=== PATIENT | male | born 1930 | race Caucasian/White ===

== ENCOUNTER 2016-06-03 09:25 | Inpatient (IN) | payer MEDICARE, BC ==
[2016-06-03] MEDS ORDERED: SODIUM CHLORIDE 0.9% 1,000 ML IV STA (09:33)
--- NOTE | 2016-06-03 09:35 | ED ---
General Adult HPI - General Stated complaint: DIZZINESS Time Seen by Provider: 06/03/16 09:26 Source: patient, RN notes reviewed Mode of arrival: EMS Limitations: no limitations - History of Present Illness Initial comments: Patient is a pleasant 85-year-old male presenting to emergency Department with feeling off balance. Onset was this morning when driving to [employer]. Symptoms continued while at [employer]. Patient feels somewhat better while lying in bed. Patient feels more off balance and leaning towards the side than anything else. Patient denies true sweating 6 sensation. Patient states he may have had some minimal symptoms similar to this in the past. No confusion. No isolated area of weakness. - Related Data Home Medications Medication Instructions Recorded Confirmed Hydrochlorothiazide [Hydrodiuril] 25 mg PO DAILY 01/17/15 02/08/16 Propafenone [Rythmol] 225 mg PO TID 01/17/15 02/08/16 Warfarin [Coumadin] 5 mg PO HS 01/17/15 02/08/16 Lisinopril [Zestril] 10 mg PO DAILY 02/08/16 02/08/16 Metoprolol Succinate (ER) [Toprol 25 mg PO DAILY 02/08/16 02/08/16 Xl] Previous Rx's Medication Instructions Recorded ALPRAZolam [Xanax] 0.25 mg PO TID PRN #15 tab 01/17/15 Allergies Allergy/AdvReac Type Severity Reaction Status Date / Time Sulfa (Sulfonamide Allergy Unknown Verified 02/08/16 19:13 Antibiotics) Review of Systems ROS Statement: Those systems with pertinent positive or pertinent negative responses have been documented in the HPI. ROS Other: All systems not noted in ROS Statement are negative. Constitutional: Denies: fever Eyes: Denies: eye pain ENT: Denies: ear pain Respiratory: Denies: cough Cardiovascular: Denies: chest pain Endocrine: Denies: fatigue Gastrointestinal: Denies: abdominal pain Genitourinary: Denies: dysuria Musculoskeletal: Denies: back pain Skin: Denies: rash Neurological: Denies: weakness Past Medical History Past Medical History: Atrial Fibrillation, Coronary Artery Disease (CAD), Hypertension Additional Past Medical History / Comment(s): AAA, deaf in left ear History of Any Multi-Drug Resistant Organisms: None Reported Past Surgical History: Heart Catheterization With Stent, Hernia Repair, Orthopedic Surgery Past Psychological History: Anxiety Smoking Status: Former smoker Past Alcohol Use History: None Reported Past Drug Use History: None Reported General Exam Limitations: no limitations General appearance: alert, in no apparent distress Head exam: Present: atraumatic Eye exam: Present: normal appearance, PERRL, EOMI. Absent: nystagmus ENT exam: Present: normal oropharynx Neck exam: Present: normal inspection Respiratory exam: Present: normal lung sounds bilaterally Cardiovascular Exam: Present: regular rate, normal rhythm GI/Abdominal exam: Present: soft. Absent: tenderness Extremities exam: Present: normal inspection Neurological exam: Present: alert, oriented X3, CN II-XII intact. Absent: motor sensory deficit Expanded Patient oriented to: Present: person, place, time Speech: Present: fluid speech Cranial nerves: EOM's Intact: Normal Cerebellar function: Finger to Nose: Normal Motor strength exam: RUE: 5, LUE: 5, RLE: 5, LLE: 5 Eye Response: (4) open spontaneously Motor Response: (6) obeys commands Verbal Response: (5) oriented Psychiatric exam: Present: normal affect, normal mood Skin exam: Absent: rash Course Vital Signs 06/03/16 06/03/16 09:26 10:28 Temperature 98.0 F Pulse Rate 77 89 Respiratory 16 18 Rate Blood Pressure 156/77 137/65 O2 Sat by Pulse 97 96 Oximetry EKG Findings - EKG Comments: EKG Findings:: Junctional rhythm at 75. QRS 110. QT 408. QTC 455. Left axis. LVH criteria. No acute ST change. Medical Decision Making - Medical Decision Making Patient reevaluated and still has some similar symptoms. Patient and family updated on results and plan. Case was discussed with Dr. Stinson, who will admit for Dr. Flores. - Lab Data Result diagrams: 06/03/16 09:43 06/03/16 09:43 Lab Results 06/03/16 06/03/16 06/03/16 Range/Units 09:43 09:43 09:43 WBC 5.9 (3.8-10.6) k/uL RBC 4.13 L (4.30-5.90) m/uL Hgb 13.8 (13.0-17.5) gm/dL Hct 41.1 (39.0-53.0) % MCV 99.5 (80.0-100.0) fL MCH 33.5 (25.0-35.0) pg MCHC 33.6 (31.0-37.0) g/dL RDW 13.2 (11.5-15.5) % Plt Count 217 (150-450) k/uL Neutrophils % (Manual) 69.0 % Lymphocytes % (Manual) 16.0 % Monocytes % (Manual) 12.0 % Eosinophils % (Manual) 3.0 % Neutrophils # (Manual) 4.1 (1.3-7.7) k/uL Lymphocytes # (Manual) 0.9 L (1.0-4.8) k/uL Monocytes # (Manual) 0.7 (0-1.0) k/uL Eosinophils # (Manual) 0.2 (0-0.7) k/uL Nucleated RBCs 0 (0-0) /100 WBC Manual Slide Review Performed PT (9.0-12.0) sec INR (<1.1) APTT (22.0-30.0) sec Sodium 142 (137-145) mmol/L Potassium 3.8 (3.5-5.1) mmol/L Chloride 102 (98-107) mmol/L Carbon Dioxide 30 (22-30) mmol/L Anion Gap 10 mmol/L BUN 20 (9-20) mg/dL Creatinine 1.07 (0.66-1.25) mg/dL Est GFR (MDRD) Af Amer >60 (>60 ml/min/1.73 sqM) Est GFR (MDRD) Non-Af >60 (>60 ml/min/1.73 sqM) Glucose 90 (74-99) mg/dL Calcium 9.4 (8.4-10.2) mg/dL Total Bilirubin 0.8 (0.2-1.3) mg/dL AST 20 (17-59) U/L ALT 22 (21-72) U/L Alkaline Phosphatase 82 (38-126) U/L Total Creatine Kinase 60 (55-170) U/L CK-MB (CK-2) 1.1 (0.0-2.4) ng/mL CK-MB (CK-2) Rel Index 1.8 Troponin I <0.012 (0.000-0.034) ng/mL Total Protein 7.0 (6.3-8.2) g/dL Albumin 4.0 (3.5-5.0) g/dL 06/03/16 Range/Units 09:43 WBC (3.8-10.6) k/uL RBC (4.30-5.90) m/uL Hgb (13.0-17.5) gm/dL Hct (39.0-53.0) % MCV (80.0-100.0) fL MCH (25.0-35.0) pg MCHC (31.0-37.0) g/dL RDW (11.5-15.5) % Plt Count (150-450) k/uL Neutrophils % (Manual) % Lymphocytes % (Manual) % Monocytes % (Manual) % Eosinophils % (Manual) % Neutrophils # (Manual) (1.3-7.7) k/uL Lymphocytes # (Manual) (1.0-4.8) k/uL Monocytes # (Manual) (0-1.0) k/uL Eosinophils # (Manual) (0-0.7) k/uL Nucleated RBCs (0-0) /100 WBC Manual Slide Review PT 21.3 H (9.0-12.0) sec INR 2.2 (<1.1) APTT 28.8 (22.0-30.0) sec Sodium (137-145) mmol/L Potassium (3.5-5.1) mmol/L Chloride (98-107) mmol/L Carbon Dioxide (22-30) mmol/L Anion Gap mmol/L BUN (9-20) mg/dL Creatinine (0.66-1.25) mg/dL Est GFR (MDRD) Af Amer (>60 ml/min/1.73 sqM) Est GFR (MDRD) Non-Af (>60 ml/min/1.73 sqM) Glucose (74-99) mg/dL Calcium (8.4-10.2) mg/dL Total Bilirubin (0.2-1.3) mg/dL AST (17-59) U/L ALT (21-72) U/L Alkaline Phosphatase (38-126) U/L Total Creatine Kinase (55-170) U/L CK-MB (CK-2) (0.0-2.4) ng/mL CK-MB (CK-2) Rel Index Troponin I (0.000-0.034) ng/mL Total Protein (6.3-8.2) g/dL Albumin (3.5-5.0) g/dL - Radiology Data Radiology results: report reviewed (Computed tomography scan the brain shows no acute abnormality. 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 Age-related atrophy.), image reviewed (Two-view chest x-ray shows cardiomegaly. No acute process.) Disposition Clinical Impression: Balance problem Disposition: ADMITTED IP TO THIS HOSP
[2016-06-03 10:14] LABS: INR 2.2 (<1.1); Partial Thromboplastin Time 28.8 sec (22.0-30.0); Prothrombin Time 21.3 sec (9.0-12.0)
[2016-06-03 10:16] LABS: ALT 22 U/L (21-72); AST 20 U/L (17-59); Alkaline Phosphatase 82 U/L (38-126); Anion Gap 10 mmol/L; Blood Urea Nitrogen 20 mg/dL (9-20); Calcium 9.4 mg/dL (8.4-10.2); Carbon Dioxide 30 mmol/L (22-30); Chloride 102 mmol/L (98-107); Glucose 90 mg/dL (74-99); Non-African American GFR(MDRD) >60 (>60 ml/min/1.73 sqM); Potassium 3.8 mmol/L (3.5-5.1); Sodium 142 mmol/L (137-145); Total Bilirubin 0.8 mg/dL (0.2-1.3)
[2016-06-03 10:25] LABS: Creatine Kinase 60 U/L (55-170)
[2016-06-03 10:30] LABS: Aty Lym Flag Marked; CH 33.4; CHCM 33.7; HCT 41.1 % (39.0-53.0); HDW 2.26; HGB 13.8 gm/dL (13.0-17.5); MCH 33.5 pg (25.0-35.0); MCHC 33.6 g/dL (31.0-37.0); MCV 99.5 fL (80.0-100.0); MPO Flag Slight; Mean Platelet Volume 7.3; RBC 4.13 m/uL (4.30-5.90); RDW 13.2 % (11.5-15.5); WBC 5.9 k/uL (3.8-10.6); WBC (Perox) 5.98
--- NOTE | 2016-06-03 10:35 | CT ---
EXAMINATION TYPE: CT brain wo con DATE OF EXAM: 06/03/2016 10:15 AM COMPARISON: NONE HISTORY: Neuro deficits. Dizziness. CT DLP: 1029.90 mGycm Automated exposure control for dose reduction was used. FINDINGS: There is no acute intracranial hemorrhage, mass effect, or midline shift identified. The ventricles and sulci are within normal limits in size. Cerebral vascular calcifications are present. Periventric ular white matter low-attenuation is present, there is cortical atrophy. Low-attenuation in the poste rior parietal lobe on the right likely due to old infarction. The globes are intact and the visualize d sinuses are remarkable for inflammatory change in the ethmoid air cells, sphenoid sinus. IMPRESSION: No acute abnormalities suspected. 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 Age -related atrophy. MRI may be of benefit as indicated
[2016-06-03 10:38] LABS: Creatine Kinase MB 1.1 ng/mL (0.0-2.4); Troponin I <0.012 ng/mL (0.000-0.034)
--- NOTE | 2016-06-03 10:45 | XR ---
EXAMINATION TYPE: XR chest 2V DATE OF EXAM: 06/03/2016 10:28 AM COMPARISON: Prior chest x-ray October HISTORY: Altered mental status, abnormal chest x-ray TECHNIQUE: Frontal and lateral views of the chest are obtained. FINDINGS: There is no focal air space opacity, pleural effusion, or pneumothorax seen. The cardiac silhouette size is stable and enlarged. Overlying cardiac leads are present, there may be scoliosis. Postop changes are noted within the abdomen status post aortic stent graft. Prominent lung volume ma y be indicative of COPD. The osseous structures are intact. IMPRESSION: No acute cardiopulmonary process. Cardiomegaly is stable.
[2016-06-03 10:46] LABS: Add Differential Manual Differential
[2016-06-03 10:47] LABS: Nucleated Red Blood Cells 0 /100 WBC (0-0); Total Cells Counted 100
[2016-06-03 10:48] LABS: Manual Review Performed
[2016-06-03] MEDS ORDERED: ASPIRIN 325 MG TAB PO STA (11:18)
[2016-06-03] MEDS ORDERED: MECLIZINE 25 MG TAB PO PRN (11:19)
[2016-06-03] MEDS ORDERED: LISINOPRIL 20 MG TAB PO SCH (12:15)
[2016-06-03] MEDS ORDERED: METOPROLOL SUCCINATE (ER) 25 MG TAB.ER.24H PO SCH (12:15)
--- NOTE | 2016-06-03 13:11 | US ---
EXAMINATION TYPE: US carotid duplex BILAT DATE OF EXAM: 06/03/2016 11:49 AM COMPARISON: 10/18/2015 CLINICAL HISTORY: Stenosis. dizziness EXAM MEASUREMENTS: RIGHT: Peak Systolic Velocity (PSV) cm/sec ----- Right CCA: 73.5 ----- Right ICA: 90.0 ----- Right ECA: 73.5 ICA/CCA ratio: 1.2 RIGHT: End Diastole cm/sec ----- Right CCA: 19.7 ----- Right ICA: 19.7 ----- Right ECA: 15.3 LEFT: Peak Systolic Velocity (PSV) cm/sec ----- Left CCA: 87.8 ----- Left ICA: 68.8 ----- Left ECA: 133.9 ICA/CCA ratio: 0.8 LEFT: End Diastole cm/sec ----- Left CCA: 16.4 ----- Left ICA: 8.6 ----- Left ECA: 17.6 VERTEBRALS (direction of flow): Right Vertebral: Antegrade Left Vertebral: Antegrade TECHNOLOGIST IMPRESSION: No significant stenosis seen, bilateral plaque at bulb Grayscale, color Doppler, spectral Doppler imaging performed of the carotid arteries. IMPRESSION: No hemodynamic significant stenosis of the proximal internal carotid arteries bilaterall y by Doppler criteria, and indirect measurement of carotid stenosis.
[2016-06-03 14:30] VITALS: BMI 32.8
[2016-06-03] MEDS: SODIUM CHLORIDE 0.9% 1,000 ML IV SCH ×2 (15:15→21:01)
[2016-06-03] MEDS ORDERED: PROPAFENONE 225 MG TAB PO SCH (16:00)
[2016-06-03 20:06] LABS: Magnesium 1.9 mg/dL (1.6-2.3); Potassium 3.9 mmol/L (3.5-5.1)
[2016-06-03] MEDS: ATORVASTATIN 20 MG TAB PO SCH (21:01)
[2016-06-03] MEDS: WARFARIN 5 MG TAB PO SCH (21:01)
[2016-06-04] MEDS: SODIUM CHLORIDE 0.9% 1,000 ML IV SCH ×2 (06:56→16:53)
--- NOTE | 2016-06-04 06:59 | HP ---
DATE OF SERVICE: 06/03/2016 CHIEF COMPLAINT: Dizziness and balance issues. HISTORY OF PRESENT ILLNESS: Mr. Chan is an 85-year-old male with the past medical history of atrial fibrillation, coronary artery disease, hypertension and dementia. Brought in by his family members with dizziness and also was having a problem with his balance since this morning. Patient was driving to [employer] this morning when he felt dizzy and then he reached the [employer] and while he was in the [employer] the patient felt that his balance was off and was leaning to his left side. His family also noticed that the patient was having twitching on the right side of his face. There was no loss of consciousness or no seizure-like activity. Patient denies having weakness. He denies having any headaches, blurring of vision or problems with hearing. Patient is hard of hearing but no new symptoms. Patient denies feeling sick. Denies having any fever, neck pain or headaches. REVIEW OF SYSTEMS: CONSTITUTIONAL: Denies fever, chills or rigors. CHEST: No cough. No difficulty in breathing. CARDIAC: No chest pain, no palpitations. GI: No abdominal pain, nausea, vomiting, or diarrhea. : No dysuria or hematuria. HEMATOLOGIC: No history for recurrent infections or easy bruising. DERMATOLOGICAL: None. All 13 review of systems are done and normal except for ones mentioned in the HPI. PAST MEDICAL HISTORY: Significant for atrial fibrillation, coronary artery disease, hypertension, dementia and deafness in the left. PAST SURGICAL HISTORY: Hernia repair, orthopedic surgery, bilateral knee replacements. ALLERGIES: Sulfa drugs. SOCIAL HISTORY: Former smoker and quit smoking 40 to 50 years back. Occasional alcohol use. No history of intravenous drug abuse. Patient's home medications: Coumadin 5 mg p.o. q.h.s. propafenone 225 mg p.o. 3 times a day. Hydrochlorothiazide 25 mg p.o. daily, metoprolol XL 25 mg p.o. daily, omeprazole 20 mg p.o. daily, atorvastatin 20 mg p.o. q.h.s. aspirin 81 mg p.o. q.h.s. FAMILY HISTORY: Positive coronary artery disease. On examination, patient's vital signs, temperature 97.1, heart rate 65, respiratory rate 16, blood pressure 176/97, saturating at 94% on room air. GENERAL EXAMINATION: Patient is an elderly male, lying in bed, appears to be in no acute distress. HEAD: Atraumatic, normocephalic. EYES: Pupils, round, and reactive to light. NECK: No JVD. No thyromegaly. CARDIOVASCULAR: S1, S2 heard, bradycardic. LUNGS: Bilateral breath sounds are positive. No wheezes or crackles. ABDOMEN: Soft, nontender, nondistended. Organomegaly difficult to appreciate due to huge body habitus. EXTREMITIES: No edema, o cyanosis, no clubbing. SOCIAL WORKER SCHOOL: Alert, awake, oriented x3. No focal neurological deficits, no facial weakness. Strength is 4 out of 5 in all 4 extremities. Gait is normal. PSYCHOLOGICAL: Appropriate mood and affect. SKIN: No rashes. Patient's labs: White count of 5.9, hemoglobin is 13.8, platelets of 217. Sodium 142, potassium 3.8, chloride 102, bicarb 30, BUN 20, creatinine 1.7. PT of 21.3, INR of 2.2. Albumin is 4, total protein is 7, troponin less than 0.012. ASSESSMENT AND PLAN: 1. Dizziness with balance issues. The patient has been admitted to be evaluated for transient ischemic attack/stroke. Currently, the patient does not have any neurological deficits. Neurology has been consulted. Patient also had a CAT scan of his brain that is within normal limits for his age. Patient has been put on tele monitoring and the patient is having 3 to 4 second sinus pauses with first degree heart block. His anti-arrthmics and B blockers have been on hold currently. 2. History of atrial fibrillation. He is on Coumadin. 3. History of coronary artery disease. 4. Hearing loss in left ear. 5. Dementia. 6. History of bilateral knee replacements done in the past. 7. History of anxiety. PLAN: The plan is to continue the patient on the current medication regimen. Neurology has been consulted. Further recommendations to follow depending on the progress of the patient. JAMID
[2016-06-04 08:01] VITALS: RESP 18
--- NOTE | 2016-06-04 08:55 | CONS ---
DATE OF CONSULTATION: CHIEF COMPLAINT: Near syncope. This is an 85-year-old gentleman with history of severe dementia, paroxysmal atrial fibrillation, hypertension, and dyslipidemia who presented to the hospital having had an episode of profound dizziness and near syncope while he was at [employer]. He felt dizzy. Got up. Held onto something but did not lose consciousness, did not pass out and did not fall. Came to hospital and since being admitted he was initially in sinus rhythm. Subsequently, he was in junctional rhythm. There were episodes of atrial fibrillation. He has had pauses, the longest of which was about 4.3 seconds. Interestingly the patient did not have any symptoms during the pauses and it is unclear as to what exactly caused a near syncopal event. At the time of my evaluation, he is free of symptoms. Denies chest pain, difficulty in breathing, palpitations or focal neurological deficits. Patient complains of having some visual disturbances on the right side and is currently being worked up for possible cerebrovascular accident. The patient is on multiple medications that could be causing the pauses including the Toprol-XL, which is currently on hold and Rythmol, which is currently held. The patient is adequately anticoagulated with an INR of 2.2. Patient has significant dementia. Family does not want to have any invasive procedures unless it is absolutely necessary. I believe the pauses are related to his underlying atrial fibrillation and if he develops pauses more than five seconds, behaves like tachybrady syndrome off the beta blockers, then we will consider pacemaker on him. At this time, I am going to treat him with his medications, optimal control of blood pressure, continued anticoagulation and check an echocardiogram. I will review his outpatient records and I am going to talk to Dr. Laney Rowe his primary garbage man. Past medical history is significant for paroxysmal atrial fibrillation, hypertension, dyslipidemia. Medications at home include: 1. Coumadin 5 daily. 2. Rythmol 225 t.i.d. 3. Toprol-XL 25 daily. 4. Zestril 20 daily. 5. HydroDIURIL. 6. Atorvastatin. 7. Aspirin. ALLERGIC TO SULFA. Family history is negative for premature coronary artery disease. SOCIAL HISTORY: Negative for smoking, ETOH abuse, or drug abuse. The patient has dementia, is a caregiver. REVIEW OF SYSTEMS: HEENT: Unremarkable. CARDIAC: As described above. RESPIRATORY: As described above. GI: Negative. GENITOURINARY: Negative. Allergy/immunology: Negative. SKIN: Negative. MUSCULOSKELETAL: Significant for arthritis. PSYCHOSOCIAL: Negative. Dermatology: Negative. CONSTITUTIONAL: Negative. Oncological: Negative. HEMATOLOGICAL: Negative. The rest of the system review is not relevant. On exam, comfortable at rest, afebrile. Heart rate is 55 beats per minute, blood pressure is 101/55, respirations 18, O2 sat is 96% on room air. There is no jugular venous distention. Carotid upstroke is normal. There is no bruit. Chest exam reveals good air entry bilaterally. Heart exam reveals first and second heart sounds. No gallop. No murmur, no rub. ABDOMEN: Soft, nontender. Exam of the extremities did not reveal any edema. Peripheral pulses are felt. LAUNDRY EQUIPMENT OPERATOR exam did not reveal focal neurological deficits. Labs show a hemoglobin of 13.8, platelet count is 217. INR is 2.2. The potassium is 3.9. Creatinine is 1. One set of troponin is negative TSH is normal at 2.6. ASSESSMENT: 1. Near syncope. 2. Paroxysmal atrial fibrillation. 3. Sinus pauses. 4. Dyslipidemia. PLAN: I am going to hold the beta blockers at this stage. Continue anticoagulation. Hold Rythmol. See how he does. I will review her outpatient records.
[2016-06-04] MEDS ORDERED: ASPIRIN 325 MG TAB PO SCH (09:00)
--- NOTE | 2016-06-04 10:20 | ECHOF ---
Referral Reason: MEASUREMENTS -------- HEIGHT: 175.3 cm WEIGHT: 100.2 kg BP: IVSd: 1.3 cm (0.6 - 1.1) LVIDd: 4.6 cm (3.9 - 5.3) LVPWd: 1.3 cm (0.6 - 1.1) IVSs: 2.3 cm LVIDs: 2.4 cm LVPWs: 2.0 cm Ao Diam: 4.0 cm (2.0 - 3.7) AV Cusp: 1.4 cm (1.5 - 2.6) LA Diam: 3.8 cm (2.7 - 3.8) MV EXCURSION: 12.495 mm (> 18.000) MV EF SLOPE: 133 mm/s (70 - 150) EPSS: 1.0 cm MV E Leonel: 0.76 m/s MV DecT: 290 ms MV A Leonel: 0.66 m/s MV E/A Ratio: 1.14 AV maxP.98 mmHg AV meanP.12 mmHg AR PHT: 419 ms RAP: 5.00 mmHg RVSP: 10.82 mmHg FINDINGS -------- Sinus rhythm. This was a technically adequate study. There is mild concentric left ventricular hypertrophy. Overall left ventricular systolic function is normal with, an EF between 55 - 60 %. The right ventricle is normal in size and function. The left atrium is normal in size. The right atrium is normal in size. Aortic valve is trileaflet and is moderately thickened. There is mild aortic regurgitation. There is mild aortic stenosis present. Peak/mean gradient across the Aortic Valve is 16.98mmHg / 9.12mmHg. The mitral valve leaflets are mildly thickened. There is trace mitral regurgitation. Trace tricuspid regurgitation present. The right ventricular systolic pressure, as measured by Doppler, is 10.82mmHg. Pulmonic valve appears structurally normal. The aortic root is mildy dilated. The pericardium is normal. CONCLUSIONS -------- 1. Sinus rhythm. 2. There is mild aortic stenosis present. 3. Peak/mean gradient across the Aortic Valve is 16.98mmHg / 9.12mmHg. 4. The mitral valve leaflets are mildly thickened. 5. There is trace mitral regurgitation. 6. Trace tricuspid regurgitation present. 7. The right ventricular systolic pressure, as measured by Doppler, is 10.82mmHg. 8. Pulmonic valve appears structurally normal. 9. The aortic root is mildy dilated. 10. The pericardium is normal. 11. This was a technically adequate study. 12. There is mild concentric left ventricular hypertrophy. 13. Overall left ventricular systolic function is normal with, an EF between 55 - 60 %. 14. The right ventricle is normal in size and function. 15. The left atrium is normal in size. 16. The right atrium is normal in size. 17. Aortic valve is trileaflet and is moderately thickened. 18. There is mild aortic regurgitation. PRECAST MOLDER: Sara Maravilla RDCS
[2016-06-04] MEDS: LISINOPRIL 10 MG TAB PO SCH (10:32)
[2016-06-04] MEDS ORDERED: ACETAMINOPHEN TAB 325 MG TAB PO PRN (14:26)
[2016-06-04] MEDS: WARFARIN 5 MG TAB PO SCH (20:25)
[2016-06-04] MEDS: ATORVASTATIN 20 MG TAB PO SCH (20:25)
[2016-06-04] MEDS ORDERED: MELATONIN 5 MG TABLET PO SCH (21:00)
[2016-06-04] MEDS ORDERED: ASPIRIN 81 MG CHEW PO SCH (21:00)
[2016-06-05] MEDS: SODIUM CHLORIDE 0.9% 1,000 ML IV SCH ×2 (04:17→13:36)
--- NOTE | 2016-06-05 05:23 | PN ---
DATE OF SERVICE: 06/04/2016 CHIEF COMPLAINT: Dizziness and balance issues. INTERVAL HISTORY: Mr. Chan is an 85-year-old male with a past medical history of atrial fibrillation, coronary artery disease, hypertension, dementia who is brought in by his family members with a chief complaint of dizziness and was also having bowel problems with his balance. Currently, the patient does not have any active symptoms with which he presented. Patient was also having longer 4 to 5 second pauses and so his beta blockers and Rythmol have been discontinued yesterday. He is currently being worked up for TIA/stroke. ( ) The patient has no active complaints. He is sitting in his bed, appears to be no acute distress. REVIEW OF SYSTEMS: CONSTITUTIONAL: Denies having any fever, chills or rigors. RESPIRATORY: No cough. No difficulty in breathing. GI: No abdominal pain, nausea, vomiting, or diarrhea. : No dysuria or hematuria. Patient has dementia at baseline. Patient's medications have been reviewed. On examination, patient's vital signs: Temperature 98.2, heart rate 73, respiratory rate 18, blood pressure 168/96, saturating at 98% on room air. GENERAL EXAMINATION: Patient appears to be in no acute distress, sitting comfortably in the ( ) having conversation with his family members. HEAD: Atraumatic, normocephalic. EYES: Pupils round and reactive to light. No facial droop noticed. NECK: No JVD. No thyromegaly. CARDIOVASCULAR: S1, S2 heard. Bradycardiac. LUNGS: Bilateral breath sounds are positive. No wheeze or crackles. ABDOMEN: Soft, nontender, nondistended. Organomegaly difficult to appreciate due to huge body habitus. EXTREMITIES: No edema, no cyanosis, no clubbing. SPIRITUAL CARE COORDINATOR: Alert, awake, oriented x3. No focal neurological deficits. Strength is 4 out of 5 in all 4 extremities. Gait is normal. PSYCHOLOGICAL: Appropriate mood and affect. SKIN: No rashes. THE PATIENT'S LABS: No new labs from this morning. Labs from yesterday within normal limits. ASSESSMENT AND PLAN: 1. Dizziness with balance issues. The patient has been admitted for transient ischemic attack evaluation. Currently, he does not have any neurological deficits. The patient had a CAT scan of his brain and also carotid artery Doppler and an echocardiogram done, which are within normal limits. As the patient had sinus pauses, his beta blockers and antiarrhythmics have been on hold currently. 2. History of atrial fibrillation, on anticoagulation with Coumadin. 3. History of coronary artery disease. 4. Hearing loss, left ear. 5. Dementia. 6. History of bilateral knee replacement done in the past. 7. History of anxiety. PLAN: The plan is to continue the patient on current medication regimen. Neurology has been consulted and are pending their evaluation. Further recommendations to follow depending on the progress of the patient.
[2016-06-05 06:35] LABS: Cholesterol 77 mg/dL (<200); HDL Cholesterol 50 mg/dL (40-60); Triglycerides 64 mg/dL (<150)
[2016-06-05] MEDS: LISINOPRIL 10 MG TAB PO SCH (08:35)
--- NOTE | 2016-06-05 10:27 | P.PN ---
Subjective Principal diagnosis: Near Syncope This is a pleasant 85-year-old gentleman with a history of severe dementia who follows regularly in the office with Dr. KWASI Rowe. He has a known history of paroxysmal atrial fib, hypertension and dyslipidemia. Presented to the hospital via EMS after having episodes of profound dizziness and near syncope while at [facility]. Upon presentation patient was in a sinus rhythm. Subsequently he was found to be in a junctional rhythm with episodes of atrial fibrillation. He was noted to have positive with the longest of about 4.3 seconds. The patient's Toprol-XL and Rythmol are currently on hold. on examination this morning, patient verbalizes feeling quite a bit better. He does complain of feeling tired and attributes this to not sleeping well initially while here. Said he did sleep quite a bit better last night. His is at his bedside. He denies any complaints of dizziness or lightheadedness and his confirms this. Objective - Vital Signs Vital signs: Vital Signs Temp 98.2 F 06/05/16 08:38 Pulse 72 06/05/16 08:38 Resp 18 06/05/16 08:38 BP 153/71 06/05/16 08:38 Pulse Ox 97 06/05/16 08:38 Intake & Output 06/04/16 06/05/16 06/05/16 18:59 06:59 18:59 Intake Total 160 240 Output Total 200 Balance -40 240 Weight 101.1 kg Intake: Intake, IV Titration 160 Amount Sodium Chloride 0.9% 1, 160 000 ml @ 100 mls/hr IV . Q10H [facility] Rx#:[id number] Oral 240 Output: Urine 200 Other: Voiding Method Toilet Toilet Toilet # Voids 1 - Exam PHYSICAL EXAMINATION: HEENT: Head is atraumatic, normocephalic. Pupils equal, round. Neck is supple. There is no elevated jugular venous pressure. HEART EXAMINATION: Heart sounds regular, S1 and S2 with a systolic murmur. CHEST EXAMINATION: Lungs are clear to auscultation and precussion. No chest wall tenderness is noted on palpation or with deep breathing. ABDOMEN: Soft, nontender. Bowel sounds are heard. No organomegaly noted. EXTREMITIES: Diminished peripheral pulses with no evidence of peripheral edema and no calf tenderness noted. NEUROLOGIC patient is awake, alert and oriented to person and place, frequent confusion and short-term memory loss noted. . - Labs CBC & Chem 7: 06/03/16 09:43 06/03/16 19:19 Assessment and Plan Plan: Assessment and plan #1 near syncope #2 paroxysmal atrial fibrillation, anticoagulated on Coumadin #3 sinus pauses #4 dyslipidemia #5 dementia [employer] perspective, we will continue to hold beta blockers and Rythmol. Continue anticoagulation. Further recommendations to follow. The above dictated assessment and findings were discussed with signing physician. The impression and plan of care have been directed as dictated. Catherine Rubio, Nurse Practitioner, acting as scribe for signing physician.
--- NOTE | 2016-06-05 12:23 | CONS ---
DATE OF CONSULTATION: 06/04/2016 CHIEF COMPLAINT: Dizziness and gait instability. HISTORY OF PRESENT ILLNESS: The patient is a pleasant, 85-year-old male who is being evaluated by the neurology service per the request of Dr. Oakes for the above-mentioned complaints. The patient was brought into [facility] emergency room yesterday after he had some dizziness and gait instability. 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 He did make it to the [employer] but he was noticed to be having gait instability with difficulty balancing. There was also mention of some left facial twitching on the right side. In the emergency room, a CT scan of the brain was done, which showed no acute intracranial abnormalities. There was evidence of an old ischemic infarct involving the right parietal lobe along with some generalized atrophy and small vessel ischemic changes. The patient does have history of atrial fibrillation and is on Coumadin and aspirin 81 mg daily at home. His INR was therapeutic at 2.2 on arrival. A carotid Doppler was done, which showed no hemodynamically significant stenosis. His CBC, comprehensive metabolic profile, and cardiac enzymes were reviewed and were within normal limits. At the time of my evaluation, the patient is lying in his bed and appears to be in no acute distress. He reports resolution of his symptoms. His family reports that they have been ambulating him up and down the hallway and he is back to his baseline. PAST MEDICAL HISTORY: Atrial fibrillation, coronary artery disease, hypertension, dementia. PAST SURGICAL HISTORY: Hernia repair, bilateral knee replacement surgeries. SOCIAL HISTORY: The patient is a former smoker. He occasionally drinks alcohol. He denies any drug use. FAMILY HISTORY: Positive for heart disease. HOME MEDICATIONS: Reviewed in the chart. ALLERGIES: SULFA DRUGS. REVIEW OF SYSTEMS: CONSTITUTIONAL: Negative. EYES: Positive for chronic diminished vision. ENT: Positive for chronic diminished hearing, left more than right. CARDIOVASCULAR: Positive for coronary artery disease and atrial fibrillation. RESPIRATORY: Negative. NEUROLOGICAL: As mentioned above. He denies any lateralizing numbness or weakness. The patient also has progressive memory loss. GASTROINTESTINAL: Negative. GENITOURINARY: Negative. PSYCHIATRIC: Negative. MUSCULOSKELETAL: Positive for occasional joint pain. ENDOCRINE: Negative. Dermatological: Negative. PHYSICAL EXAM: Vital signs show a temperature of 98.4, pulse 64, respirations 18, blood pressure 154/94. GENERAL APPEARANCE: The patient is a mildly obese, elderly male who appears to be in no acute distress. HEENT: Normocephalic, atraumatic, no facial asymmetry is seen. Neck is supple with no masses felt. CARDIOVASCULAR: Regular rate and rhythm. ABDOMEN: Nontender, nondistended. Extremities showed trace edema with no clubbing seen. NEUROLOGICAL EXAM: The patient is awake and oriented to person and place. He could not recall the year. No lateralizing weakness is seen but the patient does have mild generalized weakness at 5-/5 rating. Sensory exam showed normal light-touch sensation in all 4 extremities. No facial asymmetry is seen on cranial nerve testing. Mild postural tremors are seen. No seizure-like activity is noticed. IMPRESSION: 1. Transient ischemic attack. 2. Transient episode of dizziness and gait instability, resolved. 3. History of previous ischemic stroke. 4. Atrial fibrillation. 5. Progressive memory loss. RECOMMENDATIONS: The patient does appear to have suffered a transient ischemic attack with a transient episode of gait instability and dizziness. He does have a history of atrial fibrillation and is on Coumadin and aspirin. His INR is therapeutic and I do recommend continuing anticoagulation at the current dose. His carotid Doppler showed no hemodynamically significant stenosis. His CT scan of the brain did show an old ischemic stroke involving the right parietal lobe. The patient and the family were unaware of this. His risk factors for strokes were discussed with the patient and his family. I will order a fasting lipid panel, EEG and serum homocysteine level. As for his progressive memory loss, loss further outpatient neurological work-up will be needed. He will follow up in the clinic after his discharge. Continue the rest of your current work-up and management. I will continue to follow with you. Further recommendations to follow. Thank you for allowing me to participate in the care of your patient. If you have any questions, please feel free to contact me.
[2016-06-05 15:52] VITALS: BP 134/63; PULSE 63; TEMP 98.1
--- NOTE | 2016-06-05 17:08 | P.PN ---
Subjective Principal diagnosis: TIA Is a pleasant 85-year-old male continuing to be evaluated by the neurology service. He had been experiencing some dizziness and gait instability. There was also a mention of some right facial twitching. Initial CT of the brain showed no acute intracranial abnormalities. There was some old ischemic change noted in the right parietal lobe. There was also generalized atrophy and small vessel ischemic changes. He has a known history of atrial fibrillation and is on Coumadin and aspirin. Carotid Doppler showed no hemodynamically snug against stenosis. At this time my evaluation he is walking unaided in the hallway. Note he does have a diagnosis of likely dementia but is on no medication for this. His does report that he has trouble sleeping she is not at his home so they're asking if he could possibly go home today. Objective - Vital Signs Vital signs: Vital Signs Temp 98.1 F 06/05/16 15:51 Pulse 63 06/05/16 15:51 Resp 18 06/05/16 15:51 BP 134/63 06/05/16 15:51 Pulse Ox 96 06/05/16 15:51 Intake & Output 06/04/16 06/05/16 06/05/16 18:59 06:59 18:59 Intake Total 160 702 Output Total 200 Balance -40 702 Weight 101.1 kg Intake: Intake, IV Titration 160 Amount Sodium Chloride 0.9% 1, 160 000 ml @ 100 mls/hr IV . Q10H [facility] Rx#:[id number] Oral 702 Output: Urine 200 Other: Voiding Method Toilet Toilet Toilet # Voids 1 - Constitutional General appearance: Present: average body habitus, cooperative, no acute distress - EENT Eyes: Present: PERRLA. Absent: abnormal pupil, ptosis ENT: Present: hard of hearing - Neck Neck: Present: normal ROM - Respiratory Respiratory: negative: prolonged expiration, prolonged inspiration - Cardiovascular Rhythm: irregularly irregular - Gastrointestinal General gastrointestinal: Absent: distended, tenderness - Neurologic Neurologic Comment(s): Patient is alert awake and oriented to person and place. There is no lateralizing weakness seen . There is no facial asymmetry. No sensory deficit in any extremity. No tremors or seizure-like activities are seen except for some mild postural tremors in the hands. - Labs CBC & Chem 7: 06/03/16 09:43 06/03/16 19:19 Assessment and Plan (1) TIA (transient ischemic attack) Status: Acute (2) Atrial fibrillation Status: Chronic (3) Memory loss Status: Chronic (4) History of stroke Status: Chronic (5) Balance problem Status: Resolved Plan: He likely has suffered a transient ischemic attack. He will continue Coumadin and aspirin. His carotid Doppler showed no hemodynamically significant stenosis and his CT of the brain did confirm an old stroke of the right parietal lobe. An EEG has not been performed yet and they're asking if they can get this done in outpatient setting. I will talk to nursing staff aphasic cannot be done tonight we will do this in an outpatient setting. We will also follow him if they wish to workup his likely diagnosis of dementia. He is otherwise cleared from a neurological standpoint. Continue evaluation and treatment by cardiology. I have performed a history and physical on the above patient. I have reviewed the above note, and agree.
--- NOTE | 2016-06-07 05:47 | DS ---
DATE OF ADMISSION: 06/04/2016 DATE OF DISCHARGE: 06/05/2016 DISCHARGE DIAGNOSES: 1. Dizziness and near syncope, discontinued metoprolol and propafenone/Rythmol. 2. Possible transient ischemic attack. Neurologic workup included carotid duplex, CT head and 2-D echo have been negative. 3. History of paroxysmal atrial fibrillation, on anticoagulation with Coumadin. 4. History of coronary artery disease. 5. Hearing loss left ear. 6. Dementia and memory impairment. 7. Osteoarthritis with bilateral knee replacement in the past. 8. Anxiety. 9. Hyperlipidemia. HOSPITAL COURSE: Mr. Chan is an 85-year-old male with known history of underlying dementia and memory ( ) admitted to the hospital with a near syncopal episode. The patient had workup done for possible TIA including CT head, carotid duplex and 2-D echo has been negative. Patient was seen by Cardiology and Neurology. Patient has been taking beta blockers and Rythmol for paroxysmal atrial fibrillation, which has been discontinued. Otherwise, patient symptomatically much improved now. Neurology recommended outpatient EEG. Workup for seizures. Otherwise, the patient is clinically stable and will be discharged home with the family in stable condition. DISCHARGE PHYSICAL EXAMINATION: An 85-year-old male sitting on the chair comfortably, awake, alert, oriented x2 to 3, appears to be in no apparent distress. VITALS: Blood pressure 134/63, pulse is 63, respiratory rate is 18, temperature afebrile. Pulse ox 96% on room air. Laboratory data reviewed. Discharge physical examination done. Discharge medications include: 1. Hydrochlorothiazide 25 mg p.o. daily. 2. Warfarin 5 mg p.o. at bedtime. 3. Aspirin 81 mg p.o. at bedtime. 4. Atorvastatin 20 mg p.o. at bedtime. 5. Zestril 20 mg p.o. daily. Patient will be discharged home and home with self care and by the family members. Activity as tolerated. Heart healthy diet. Follow with Dr. Magno Flores in 1 to [address] Marge Romero in 10 days.
== END 2016-06-05 18:07 | disposition home or self-care (01) | DRG 69 ==
LOC: EC 09:25 → 3OBS 11:18 → 6SEL 13:30 → OBSVTOIN 06-04 14:28
PROVIDERS: ADMIT Internal Medicine; ATTEND Internal Medicine
DX: G45.9 Transient cerebral ischemic attack, unspecified (principal); I48.0 Paroxysmal atrial fibrillation; F03.90 Unspecified dementia, unspecified severity, without behavioral disturbance, psychotic disturbance, mood disturbance, and anxiety; E78.5 Hyperlipidemia, unspecified; F41.9 Anxiety disorder, unspecified; H91.92 Unspecified hearing loss, left ear; I10 Essential (primary) hypertension; I25.10 Atherosclerotic heart disease of native coronary artery without angina pectoris; I44.0 Atrioventricular block, first degree; I71.4 Abdominal aortic aneurysm, without rupture; M19.90 Unspecified osteoarthritis, unspecified site; R26.9 Unspecified abnormalities of gait and mobility; Z79.01 Long term (current) use of anticoagulants; Z79.82 Long term (current) use of aspirin; Z79.899 Other long term (current) drug therapy; Z88.2 Allergy status to sulfonamides; Z87.891 Personal history of nicotine dependence; Z96.653 Presence of artificial knee joint, bilateral; Z86.73 Personal history of transient ischemic attack (TIA), and cerebral infarction without residual deficits; Z82.49 Family history of ischemic heart disease and other diseases of the circulatory system
CPT/HCPCS: 36415; 70450; 71020; 80053; 80061; 82550; 82553; 83090; 83735; 84132; 84443; 84484; 85025; 85610; 85730; 93005; 93306; 93880; 96360; 96361; 99285

== ENCOUNTER 2016-11-27 20:14 | Emergency (ER) | payer MEDICARE, BC ==
[2016-11-27 20:52] VITALS: RESP 18
[2016-11-27] MEDS ORDERED: SODIUM CHLORIDE 0.9% 1,000 ML IV STA (21:29)
--- NOTE | 2016-11-27 21:38 | ED ---
Abdominal Pain HPI - General Chief Complaint: Abdominal Pain Stated Complaint: Indigestion/Gas Time Seen by Provider: 11/27/16 21:00 Source: patient, family, RN notes reviewed Mode of arrival: ambulatory Limitations: no limitations - History of Present Illness Initial Comments: This is a 86-year-old male was brought in by family because of 4 days of feeling like he swallowed gas. He's had abdominal distention some discomfort some radiation up into his chest he's had no relief with antiacids except for a small amount relief today finally after several days. He denies any overt chest pain no fevers chills nausea vomiting sweats or other symptoms. No diarrhea he is passing gas from below. No dysuria hematuria. MD Complaint: abdominal pain - Related Data Home Medications Medication Instructions Recorded Confirmed Hydrochlorothiazide [Hydrodiuril] 25 mg PO DAILY 01/17/15 11/27/16 Warfarin [Coumadin] 5 mg PO HS 01/17/15 11/27/16 Aspirin EC [Ecotrin Low Dose] 81 mg PO HS 06/03/16 11/27/16 Atorvastatin [Lipitor] 20 mg PO HS 06/03/16 11/27/16 Lisinopril [Zestril] 20 mg PO DAILY 06/03/16 11/27/16 Memantine HCl/Donepezil HCl 1 cap PO DAILY 11/27/16 11/27/16 [Namzaric 28 mg-10 mg Capsule] Metoprolol Succinate [Toprol XL] 25 mg PO DAILY 11/27/16 11/27/16 Propafenone [Rythmol] 225 mg PO TID 11/27/16 11/27/16 Zolpidem Tartrate [Ambien] 5 mg PO HS 11/27/16 11/27/16 Allergies Allergy/AdvReac Type Severity Reaction Status Date / Time Sulfa (Sulfonamide Allergy Unknown Verified 11/27/16 20:43 Antibiotics) Review of Systems ROS Statement: Those systems with pertinent positive or pertinent negative responses have been documented in the HPI. ROS Other: All systems not noted in ROS Statement are negative. Past Medical History Past Medical History: Atrial Fibrillation, Coronary Artery Disease (CAD), Hypertension Additional Past Medical History / Comment(s): AAA, deaf in left ear, dementia History of Any Multi-Drug Resistant Organisms: None Reported Past Surgical History: Heart Catheterization With Stent, Hernia Repair, Orthopedic Surgery Additional Past Surgical History / Comment(s): bilateral knee replacements Additional Past Anesthesia/Blood Transfusion Reaction / Comment(s): Slow to wake up after anesthesia Date of Last Stent Placement:: Unsure, >5 years Past Psychological History: Anxiety Smoking Status: Former smoker Past Alcohol Use History: None Reported Past Drug Use History: None Reported - Past Family History Father History Unknown: Yes Family Medical History: Myocardial Infarction (SD) Mother History Unknown: Yes Family Medical History: Cancer General Exam - General Exam Comments Initial Comments: This is a well-developed well-nourished awake alert oriented 3 male Limitations: no limitations General appearance: alert, in no apparent distress Head exam: Present: atraumatic, normocephalic, normal inspection Eye exam: Present: normal appearance, PERRL, EOMI. Absent: scleral icterus, conjunctival injection, periorbital swelling ENT exam: Present: normal exam, mucous membranes moist Neck exam: Present: normal inspection. Absent: tenderness, meningismus, lymphadenopathy Respiratory exam: Present: normal lung sounds bilaterally. Absent: respiratory distress, wheezes, rales, rhonchi, stridor Cardiovascular Exam: Present: regular rate, normal rhythm, normal heart sounds. Absent: systolic murmur, diastolic murmur, rubs, gallop, clicks GI/Abdominal exam: Present: soft, distended, normal bowel sounds. Absent: tenderness, guarding, rebound, rigid, bruit, pulsatile mass, hernia Extremities exam: Present: normal inspection, full ROM, normal capillary refill. Absent: tenderness, pedal edema, joint swelling, calf tenderness Back exam: Present: normal inspection Neurological exam: Present: alert, oriented X3, CN II-XII intact Psychiatric exam: Present: normal affect, normal mood Skin exam: Present: warm, dry, intact, normal color. Absent: rash Course Vital Signs 11/27/16 11/27/16 11/27/16 20:30 20:49 22:47 Temperature 97.6 F Pulse Rate 63 56 L 88 Respiratory 16 18 18 Rate Blood Pressure 174/81 133/59 137/74 O2 Sat by Pulse 98 96 88 L Oximetry Medical Decision Making - Medical Decision Making I did discuss findings with the patient family patient will be discharged is keep his follow-up with Dr. York tomorrow. I did recommend increasing his oral fluids. X-ray show some increased stool but otherwise no acute findings - Lab Data Result diagrams: 11/27/16 21:43 11/27/16 21:43 Lab Results 11/27/16 11/27/16 11/27/16 Range/Units 21:43 21:43 21:43 WBC 7.0 (3.8-10.6) k/uL RBC 3.84 L (4.30-5.90) m/uL Hgb 12.9 L (13.0-17.5) gm/dL Hct 38.0 L (39.0-53.0) % MCV 98.8 (80.0-100.0) fL MCH 33.6 (25.0-35.0) pg MCHC 34.0 (31.0-37.0) g/dL RDW 13.5 (11.5-15.5) % Plt Count 229 (150-450) k/uL Neutrophils % (Manual) 65 % Lymphocytes % (Manual) 15 % Monocytes % (Manual) 15 % Eosinophils % (Manual) 5 % Neutrophils # (Manual) 4.55 (1.3-7.7) k/uL Lymphocytes # (Manual) 1.05 (1.0-4.8) k/uL Monocytes # (Manual) 1.05 H (0-1.0) k/uL Eosinophils # (Manual) 0.35 (0-0.7) k/uL Nucleated RBCs 0 (0-0) /100 WBC Polychromasia Present Sodium 139 (137-145) mmol/L Potassium 3.8 (3.5-5.1) mmol/L Chloride 103 (98-107) mmol/L Carbon Dioxide 28 (22-30) mmol/L Anion Gap 8 mmol/L BUN 17 (9-20) mg/dL Creatinine 1.09 (0.66-1.25) mg/dL Est GFR (MDRD) Af Amer >60 (>60 ml/min/1.73 sqM) Est GFR (MDRD) Non-Af >60 (>60 ml/min/1.73 sqM) Glucose 83 (74-99) mg/dL Calcium 9.1 (8.4-10.2) mg/dL Total Bilirubin 0.6 (0.2-1.3) mg/dL AST 21 (17-59) U/L ALT 31 (21-72) U/L Alkaline Phosphatase 97 (38-126) U/L Total Creatine Kinase 67 (55-170) U/L CK-MB (CK-2) 1.1 (0.0-2.4) ng/mL CK-MB (CK-2) Rel Index 1.6 Troponin I <0.012 (0.000-0.034) ng/mL Total Protein 6.6 (6.3-8.2) g/dL Albumin 3.8 (3.5-5.0) g/dL Amylase 63 (30-110) U/L Lipase 124 (23-300) U/L Urine Color Urine Appearance (Clear) Urine pH (5.0-8.0) Ur Specific [place] (1.001-1.035) Urine Protein (Negative) Urine Glucose (UA) (Negative) Urine Ketones (Negative) Urine Blood (Negative) Urine Nitrite (Negative) Urine Bilirubin (Negative) Urine Urobilinogen (<2.0) mg/dL Ur Leukocyte Esterase (Negative) 11/27/16 Range/Units 22:12 WBC (3.8-10.6) k/uL RBC (4.30-5.90) m/uL Hgb (13.0-17.5) gm/dL Hct (39.0-53.0) % MCV (80.0-100.0) fL MCH (25.0-35.0) pg MCHC (31.0-37.0) g/dL RDW (11.5-15.5) % Plt Count (150-450) k/uL Neutrophils % (Manual) % Lymphocytes % (Manual) % Monocytes % (Manual) % Eosinophils % (Manual) % Neutrophils # (Manual) (1.3-7.7) k/uL Lymphocytes # (Manual) (1.0-4.8) k/uL Monocytes # (Manual) (0-1.0) k/uL Eosinophils # (Manual) (0-0.7) k/uL Nucleated RBCs (0-0) /100 WBC Polychromasia Sodium (137-145) mmol/L Potassium (3.5-5.1) mmol/L Chloride (98-107) mmol/L Carbon Dioxide (22-30) mmol/L Anion Gap mmol/L BUN (9-20) mg/dL Creatinine (0.66-1.25) mg/dL Est GFR (MDRD) Af Amer (>60 ml/min/1.73 sqM) Est GFR (MDRD) Non-Af (>60 ml/min/1.73 sqM) Glucose (74-99) mg/dL Calcium (8.4-10.2) mg/dL Total Bilirubin (0.2-1.3) mg/dL AST (17-59) U/L ALT (21-72) U/L Alkaline Phosphatase (38-126) U/L Total Creatine Kinase (55-170) U/L CK-MB (CK-2) (0.0-2.4) ng/mL CK-MB (CK-2) Rel Index Troponin I (0.000-0.034) ng/mL Total Protein (6.3-8.2) g/dL Albumin (3.5-5.0) g/dL Amylase (30-110) U/L Lipase (23-300) U/L Urine Color Light Yellow Urine Appearance Clear (Clear) Urine pH 6.5 (5.0-8.0) Ur Specific [place] 1.003 (1.001-1.035) Urine Protein Negative (Negative) Urine Glucose (UA) Negative (Negative) Urine Ketones Negative (Negative) Urine Blood Negative (Negative) Urine Nitrite Negative (Negative) Urine Bilirubin Negative (Negative) Urine Urobilinogen <2.0 (<2.0) mg/dL Ur Leukocyte Esterase Negative (Negative) - EKG Data -: EKG Interpreted by Me (Pacemaker rhythm of 55 QRS 106 QT cyst QTc of 456/436 left exodeviation LVH) - Radiology Data Radiology results: report reviewed, image reviewed Disposition Clinical Impression: Obstipation, Dehydration Disposition: HOME SELF-CARE Condition: Good Instructions: Obstipation (ED), Dehydration (ED) Referrals: Magno Flores MD [Primary Care Provider] - 1-2 days
[2016-11-27 22:07] LABS: Aty Lym Flag Marked; CH 34.1; CHCM 34.7; HDW 2.27; HGB 12.9 gm/dL (13.0-17.5); MCH 33.6 pg (25.0-35.0); MCV 98.8 fL (80.0-100.0); MPO Flag Slight; Mean Platelet Volume 7.9; RBC 3.84 m/uL (4.30-5.90); RDW 13.5 % (11.5-15.5); WBC (Perox) 6.89
[2016-11-27 22:09] LABS: ALT 31 U/L (21-72); AST 21 U/L (17-59); Alkaline Phosphatase 97 U/L (38-126); Amylase 63 U/L (30-110); Anion Gap 8 mmol/L; Blood Urea Nitrogen 17 mg/dL (9-20); Calcium 9.1 mg/dL (8.4-10.2); Carbon Dioxide 28 mmol/L (22-30); Chloride 103 mmol/L (98-107); Glucose 83 mg/dL (74-99); Non-African American GFR(MDRD) >60 (>60 ml/min/1.73 sqM); Potassium 3.8 mmol/L (3.5-5.1); Sodium 139 mmol/L (137-145); Total Bilirubin 0.6 mg/dL (0.2-1.3); Total Protein 6.6 g/dL (6.3-8.2)
[2016-11-27 22:23] LABS: Add Differential Manual Differential
--- NOTE | 2016-11-27 22:28 | XR ---
EXAM: XR Chest, 2 Views CLINICAL HISTORY: Reason: abdominal pain and distention. History of atrial fibrillation, CAD, pacemaker and hypertension. TECHNIQUE: Frontal and lateral views of the chest. COMPARISON: 06/03/16 two-view chest. FINDINGS: Lungs: The lungs are stable without new focal infiltrate. Pleural space: No pleural effusion or pneumothorax. Heart: Stable cardiomegaly. Mediastinum: Stable including mild aortic ectasia. Bones/joints: Stable including degenerative changes and thoracolumbar dextroscoliosis. Tubes, lines and devices: Interval placement of left-sided 2-lead pacemaker. Upper abdomen: Mild elevation of the left diaphragm, beneath which there is again gastric fundus and splenic flexure, unchanged. IMPRESSION: 1. Interval placement of pacemaker. 2. Otherwise, no new acute intrathoracic abnormality is seen.
--- NOTE | 2016-11-27 22:31 | XR ---
EXAM: XR Abdomen, 1 View CLINICAL HISTORY: Reason: abdominal pain TECHNIQUE: Frontal upright views of the abdomen/pelvis. COMPARISON: No relevant prior studies available. FINDINGS: Intraperitoneal space: No free air is seen. Gastrointestinal tract: Air is seen mixing with moderate amount of colonic stool throughout. No grossly dilated small bowel loops nor gastric distention. Organs: Previous aortobiiliac stent graft placement. Multiple small bilateral pelvic round calcifications are indeterminate, statistically phleboliths. Bones/joints: Dextroscoliosis centered at the L2 level. Multilevel degenerative changes. IMPRESSION: 1. No definite evidence of intestinal obstruction, nor perforation. 2. Moderate amount of colonic stool is noted. Comment: The findings could be correlated and followed clinically to guide further imaging follow-up as clinically indicated.
[2016-11-27 22:33] LABS: Creatine Kinase 67 U/L (55-170)
[2016-11-27 22:34] LABS: Nucleated Red Blood Cells 0 /100 WBC (0-0); Polychromasia Present; Total Cells Counted 100
[2016-11-27 22:46] LABS: Creatine Kinase MB 1.1 ng/mL (0.0-2.4); Troponin I <0.012 ng/mL (0.000-0.034)
[2016-11-27 22:50] LABS: Appearance,Urine Clear (Clear); Bilirubin,Urine Negative (Negative); Glucose,Urine (UA) Negative (Negative); Ketones,Urine Negative (Negative); Leukocyte Esterase,Urine Negative (Negative); Nitrite,Urine Negative (Negative); PH, Urine 6.5 (5.0-8.0); Protein,Urine Negative (Negative); Specific Gravity,Urine 1.003 (1.001-1.035); UA Billing (MACRO vs. MICRO) CHEM; Urobilinogen,Urine <2.0 mg/dL (<2.0)
[2016-11-27 23:37] VITALS: BP 150/73; PULSE 56; TEMP 97.8
== END 2016-11-27 23:37 | disposition home or self-care (01) ==
LOC: EC 20:14
DX: K59.00 Constipation, unspecified (principal); E86.0 Dehydration; I48.91 Unspecified atrial fibrillation; I25.10 Atherosclerotic heart disease of native coronary artery without angina pectoris; I10 Essential (primary) hypertension; F03.90 Unspecified dementia, unspecified severity, without behavioral disturbance, psychotic disturbance, mood disturbance, and anxiety; F41.9 Anxiety disorder, unspecified; Z87.891 Personal history of nicotine dependence; Z79.82 Long term (current) use of aspirin; Z79.01 Long term (current) use of anticoagulants; Z79.899 Other long term (current) drug therapy; Z88.2 Allergy status to sulfonamides
CPT/HCPCS: 36415; 71020; 74000; 80053; 81003; 82150; 82550; 82553; 83690; 84484; 85025; 93005; 96360; 96361; 99284

== ENCOUNTER 2017-02-27 17:18 | Observation (INO) | payer MEDICARE, BC ==
[2017-02-27] MEDS ORDERED: LORazepam 2 MG/ML INJ IV STA (17:31)
[2017-02-27] MEDS ORDERED: NITROGLYCERIN SL TABS 0.4 MG TAB SUBLINGUAL STA (17:31)
[2017-02-27] MEDS ORDERED: GLUCAGON 1 MG/ML VIAL IVP STA (17:31)
[2017-02-27 17:48] LABS: Aty Lym Flag Marked; CHCM 33.1; HCT 43.1 % (39.0-53.0); HDW 2.13; HGB 13.7 gm/dL (13.0-17.5); MCH 31.9 pg (25.0-35.0); MCHC 31.9 g/dL (31.0-37.0); MCV 100.2 fL (80.0-100.0); MPO Flag Slight; Mean Platelet Volume 7.8; RDW 13.8 % (11.5-15.5); WBC 7.2 k/uL (3.8-10.6); WBC (Perox) 7.13
--- NOTE | 2017-02-27 17:50 | ED ---
General Adult HPI - General Chief complaint: ENT Stated complaint: FB IN THROAT Time Seen by Provider: 02/27/17 17:24 Source: patient, family, RN notes reviewed, old records reviewed Mode of arrival: ambulatory Limitations: altered mental status - History of Present Illness Initial comments: 86-year-old male presents with concern for esophageal foreign body. Patient was eating pork past with 10 minutes prior to arrival. He had sensation all lodged foreign body. He has been spitting since the incident. Patient did state he had some chest pain with the episode. This currently resolved. Patient is pain-free. Patient has remote history of esophageal foreign body requiring endoscopy. - Related Data Home Medications Medication Instructions Recorded Confirmed Hydrochlorothiazide [Hydrodiuril] 25 mg PO DAILY 01/17/15 11/27/16 Warfarin [Coumadin] 5 mg PO HS 01/17/15 11/27/16 Aspirin EC [Ecotrin Low Dose] 81 mg PO HS 06/03/16 11/27/16 Atorvastatin [Lipitor] 20 mg PO HS 06/03/16 11/27/16 Lisinopril [Zestril] 20 mg PO DAILY 06/03/16 11/27/16 Memantine HCl/Donepezil HCl 1 cap PO DAILY 11/27/16 11/27/16 [Namzaric 28 mg-10 mg Capsule] Metoprolol Succinate [Toprol XL] 25 mg PO DAILY 11/27/16 11/27/16 Propafenone [Rythmol] 225 mg PO TID 11/27/16 11/27/16 Zolpidem Tartrate [Ambien] 5 mg PO HS 11/27/16 11/27/16 Allergies Allergy/AdvReac Type Severity Reaction Status Date / Time Sulfa (Sulfonamide Allergy Unknown Verified 02/27/17 17:31 Antibiotics) Review of Systems ROS Statement: Those systems with pertinent positive or pertinent negative responses have been documented in the HPI. ROS Other: All systems not noted in ROS Statement are negative. Past Medical History Past Medical History: Atrial Fibrillation, Coronary Artery Disease (CAD), Hypertension Additional Past Medical History / Comment(s): AAA, deaf in left ear, dementia History of Any Multi-Drug Resistant Organisms: None Reported Past Surgical History: Heart Catheterization With Stent, Hernia Repair, Orthopedic Surgery Additional Past Surgical History / Comment(s): bilateral knee replacements Additional Past Anesthesia/Blood Transfusion Reaction / Comment(s): Slow to wake up after anesthesia Date of Last Stent Placement:: Unsure, >5 years Past Psychological History: Anxiety Smoking Status: Former smoker Past Alcohol Use History: None Reported Past Drug Use History: None Reported - Past Family History Father History Unknown: Yes Family Medical History: Myocardial Infarction ([place]) Mother History Unknown: Yes Family Medical History: Cancer General Exam Limitations: altered mental status General appearance: alert, in no apparent distress Head exam: Present: atraumatic, normocephalic Eye exam: Present: normal appearance, PERRL ENT exam: Present: normal exam, normal oropharynx Neck exam: Present: normal inspection. Absent: tenderness, meningismus Respiratory exam: Present: normal lung sounds bilaterally. Absent: respiratory distress, stridor Cardiovascular Exam: Present: regular rate, normal rhythm GI/Abdominal exam: Present: soft. Absent: distended, tenderness Extremities exam: Present: normal inspection Neurological exam: Present: alert. Absent: motor sensory deficit Psychiatric exam: Present: normal affect, normal mood Skin exam: Present: warm, dry, intact. Absent: cyanosis, diaphoretic Course Vital Signs 02/27/17 02/27/17 02/27/17 17:28 17:34 17:50 Temperature 98.7 F Pulse Rate 73 71 69 Respiratory 18 18 18 Rate Blood Pressure 185/88 178/88 108/58 O2 Sat by Pulse 98 96 95 Oximetry - Reevaluation(s) Reevaluation #1: 02/27/17 18:25 Patient is given Ativan, glucagon, and nitroglycerin, esophageal foreign body resolved. Patient is able to tolerate liquids without difficulty. Medical Decision Making - Medical Decision Making 86-year-old male presenting with concern for esophageal foreign body after eating pork. She'll evaluation, patient is unable to handle his secretions, unable to drink. No stridor or respiratory distress. He is given glucagon, Ativan, nitroglycerin. This does resolve his symptoms. He is able to tolerate liquids without difficulty. Laboratory studies reveal normal white blood cell count, stable hemoglobin, tried normal limits. X-ray of the chest and soft tissue neck is negative for foreign body or acute intrathoracic process. Patient will follow-up with gastroenterology. Diagnosis: Esophageal foreign body, resolved - Lab Data Result diagrams: 02/27/17 17:36 02/27/17 17:36 Lab Results 02/27/17 02/27/17 02/27/17 Range/Units 17:36 17:36 17:36 WBC 7.2 (3.8-10.6) k/uL RBC 4.30 (4.30-5.90) m/uL Hgb 13.7 (13.0-17.5) gm/dL Hct 43.1 (39.0-53.0) % MCV 100.2 H (80.0-100.0) fL MCH 31.9 (25.0-35.0) pg MCHC 31.9 (31.0-37.0) g/dL RDW 13.8 (11.5-15.5) % Plt Count 252 (150-450) k/uL Neutrophils % (Manual) 59 % Band Neutrophils % 4 % Lymphocytes % (Manual) 33 % Monocytes % (Manual) 3 % Eosinophils % (Manual) 1 % Neutrophils # (Manual) 4.50 (1.3-7.7) k/uL Lymphocytes # (Manual) 2.38 (1.0-4.8) k/uL Monocytes # (Manual) 0.22 (0-1.0) k/uL Eosinophils # (Manual) 0.07 (0-0.7) k/uL Nucleated RBCs 0 (0-0) /100 WBC Manual Slide Review Performed Poikilocytosis (manual Present PT 11.3 (9.0-12.0) sec INR 1.2 H (<1.2) APTT 25.3 (22.0-30.0) sec Sodium 140 (137-145) mmol/L Potassium 3.7 (3.5-5.1) mmol/L Chloride 99 (98-107) mmol/L Carbon Dioxide 30 (22-30) mmol/L Anion Gap 11 mmol/L BUN 23 H (9-20) mg/dL Creatinine 1.10 (0.66-1.25) mg/dL Est GFR (MDRD) Af Amer >60 (>60 ml/min/1.73 sqM) Est GFR (MDRD) Non-Af >60 (>60 ml/min/1.73 sqM) Glucose 138 H (74-99) mg/dL Calcium 9.4 (8.4-10.2) mg/dL Total Bilirubin 0.5 (0.2-1.3) mg/dL AST 20 (17-59) U/L ALT 31 (21-72) U/L Alkaline Phosphatase 96 (38-126) U/L Total Protein 6.9 (6.3-8.2) g/dL Albumin 4.0 (3.5-5.0) g/dL Disposition Clinical Impression: Esophageal foreign body Disposition: HOME SELF-CARE Condition: Good Instructions: Esophageal Foreign Body (ED) Referrals: Magno Flores MD [Primary Care Provider] - 1-2 days Jamie Silverio MD [STAFF PHYSICIAN] - 1-2 days Time of Disposition: 18:29
[2017-02-27 17:53] LABS: INR 1.2 (<1.2); Partial Thromboplastin Time 25.3 sec (22.0-30.0); Prothrombin Time 11.3 sec (9.0-12.0)
[2017-02-27 17:56] LABS: ALT 31 U/L (21-72); AST 20 U/L (17-59); Alkaline Phosphatase 96 U/L (38-126); Anion Gap 11 mmol/L; Blood Urea Nitrogen 23 mg/dL (9-20); Calcium 9.4 mg/dL (8.4-10.2); Carbon Dioxide 30 mmol/L (22-30); Chloride 99 mmol/L (98-107); Glucose 138 mg/dL (74-99); Non-African American GFR(MDRD) >60 (>60 ml/min/1.73 sqM); Potassium 3.7 mmol/L (3.5-5.1); Sodium 140 mmol/L (137-145); Total Bilirubin 0.5 mg/dL (0.2-1.3); Total Protein 6.9 g/dL (6.3-8.2)
[2017-02-27 18:20] LABS: Add Differential Manual Differential
[2017-02-27 18:22] LABS: Band Neutrophils % 4 %; Nucleated Red Blood Cells 0 /100 WBC (0-0); Total Cells Counted 100
[2017-02-27 18:23] LABS: Manual Review Performed
--- NOTE | 2017-02-27 18:26 | XR ---
EXAMINATION TYPE: XR chest 2V DATE OF EXAM: 02/27/2017 COMPARISON: Chest x-ray November 27, 2016 HISTORY: Foreign body in throat per patient. TECHNIQUE: Frontal and lateral views of the chest are obtained. FINDINGS: There is poor inspiration on current study with by basilar opacity favoring atelectasis. Th ere is redemonstration of cardiomegaly with dual lead pacemaker as well as atherosclerotic and ectati c aorta causing tracheal deviation. There is redemonstration elevated left hemidiaphragm. Osseous str uctures are demineralized. IMPRESSION: Cardiomegaly redemonstrated. Poor inspiration is noted with new bibasilar atelectasis.
--- NOTE | 2017-02-27 18:27 | XR ---
EXAMINATION TYPE: XR soft tissue neck DATE OF EXAM: 02/27/2017 COMPARISON: Prior cervical spine x-ray August 02, 2013 HISTORY: Foreign body inhalation TECHNIQUE: 2 views of soft tissue neck are acquired. FINDINGS: No suspicious prevertebral soft tissue swelling is seen on lateral view. Epiglottis and troy lecula are within normal limits on lateral view. No suspicious narrowing of subglottic airway is seen on frontal view. No suspicious radiodense foreign body is identified. There is moderate spurring and disc space narrowing C4-C5 through C6-C7 levels redemonstrated. IMPRESSION: No suspicious radiodense foreign body identified.
[2017-02-27] MEDS ORDERED: NALOXONE 0.4 MG/ML 1 ML VIAL IV PRN (21:08)
[2017-02-27 22:01] VITALS: BMI 30.8
[2017-02-27 22:13] VITALS: RESP 18
[2017-02-27] MEDS: PROPAFENONE 225 MG TAB PO SCH (22:40)
[2017-02-28 07:58] VITALS: BP 150/79; PULSE 71; TEMP 97.6
[2017-02-28] MEDS: PROPAFENONE 225 MG TAB PO SCH (08:25)
[2017-02-28] MEDS ORDERED: HYDROCHLOROTHIAZIDE 25 MG TAB PO SCH (09:00)
[2017-02-28] MEDS ORDERED: METOPROLOL SUCCINATE (ER) 25 MG TAB.ER.24H PO SCH (09:00)
[2017-02-28] MEDS ORDERED: WARFARIN 5 MG TAB PO SCH (18:00)
[2017-02-28] MEDS ORDERED: ATORVASTATIN 20 MG TAB PO SCH (21:00)
[2017-02-28] MEDS ORDERED: ASPIRIN 81 MG PO SCH (21:00)
--- NOTE | 2017-03-01 04:32 | HP ---
HISTORY AND PHYSICAL This is a combined HISTORY AND PHYSICAL and DISCHARGE SUMMARY. CHIEF COMPLAINT: Change in mental status and dysphagia. HISTORY OF PRESENT ILLNESS: This 86-year-old gentleman with a past medical history of multiple medical problems including dementia, history of atrial fibrillation, CAD, hypertension, abdominal aortic aneurysm, CAD stent being followed by Dr. Magno Flores in the outpatient setting apparently had choked on a piece of meat, pork, which happened a few months ago. The patient came to [facility] and significant relief, but subsequently the patient also given Ativan. Patient had some change in mental status. The patient is confused. The patient admitted for further evaluation and treatment. There is no history of any fever or rigors. No history of headache, loss of consciousness or seizures. PAST MEDICAL HISTORY: Atrial fibrillation, CAD, hypertension, abdominal aortic aneurysm, history of CAD, stent. MEDICATIONS: Home medications are: 1. Ambien 5 mg q.h.s. 2. Coumadin 5 mg Saturday, Saturday, Saturday, , Saturday, Saturday. 3. Namenda 1 capsule p.o. daily. 4. Lipitor 20 mg q.h.s. 5. Ecotrin 81 mg q.h.s. 6. Warfarin sodium 7.5 mg on Saturday. 7. Rythmol 225 mg p.o. t.i.d. 8. Toprol XL 25 mg p.o. daily. 9. Zestril 20 mg p.o. daily. 10.HydroDIURIL 25 mg p.o. daily. ALLERGIES: Allergies to SULFA. FAMILY HISTORY: History of myocardial infarction in the family. SOCIAL HISTORY: Previous history of smoking. No history of alcohol intake. REVIEW OF SYSTEMS: ENT: Diminished hearing and diminished vision. CARDIOVASCULAR SYSTEM: No angina, palpitations. RESPIRATORY SYSTEM: No cough, hemoptysis. GI: No nausea, otherwise, as mentioned earlier. : No dysuria. NERVOUS SYSTEM: As mentioned earlier. ALLERGY/IMMUNOLOGY: As mentioned earlier. MUSCULOSKELETAL: As mentioned earlier. HEMATOLOGY/ONCOLOGY: Negative. ENDOCRINE: No history of diabetes or hypothyroidism. CONSTITUTIONAL: As mentioned earlier. DERMATOLOGY: Negative. RHEUMATOLOGY: Negative. PSYCHIATRY: As mentioned earlier. PHYSICAL EXAMINATION: Patient is alert, oriented x3. Pulse is 71, blood pressure 150/79, respiration 18, temp 97.6, pulse ox 97% on room air. HEENT: Conjunctivae normal. NECK: No jugular venous distention. CARDIOVASCULAR: S1 and S2 muffled. RESPIRATORY: Breath sounds diminished at the base. A few scattered rhonchi and crackles. ABDOMEN: Soft, nontender. No mass palpable. LEGS: No edema, no swelling. NERVOUS SYSTEM: Higher functions as mentioned earlier. Moves all 4limbs. No focal motor or sensory deficits. LYMPHATICS: No lymphadenopathy of the neck, axillae or groin. SKIN: No ulcer, rash or bleeding. LAB: MCV 102.2 otherwise, INR 1.2 and glucose 138. ASSESSMENT: 1. Change in mental status, metabolic encephalopathy, possibly secondary to medications. 2. Dysphagia secondary to foreign body. 3. Atrial fibrillation. 4. Coronary artery disease. 5. Abdominal aortic aneurysm. 6. History of dementia. 7. History of coronary artery disease, stent. 8. History of hernia repair. RECOMMENDATIONS AND DISCUSSION: In this 86-year-old gentleman who presented with multiple complex medical issues , we will continue current medications. Dysphagia has resolved. Confusion could be most likely due to administration of Ativan. Otherwise we would recommend to continue the current medications. The patient is currently back to his baseline. The patient will be discharged with further plans to follow up with Dr. Magno Flores in the outpatient setting. MMISABELL / MARINEN: [phone] / MAURICE
[2017-03-03] MEDS ORDERED: WARFARIN 7.5 MG TAB PO SCH (18:00)
== END 2017-02-28 12:13 | disposition home or self-care (01) ==
LOC: EC 17:18 → 3OBS 21:08
PROVIDERS: ADMIT Hospitalist; ATTEND Hospitalist
DX: R41.82 Altered mental status, unspecified (principal); G93.41 Metabolic encephalopathy; T18.128A Food in esophagus causing other injury, initial encounter; X58.XXXA Exposure to other specified factors, initial encounter; F03.90 Unspecified dementia, unspecified severity, without behavioral disturbance, psychotic disturbance, mood disturbance, and anxiety; I48.91 Unspecified atrial fibrillation; I25.10 Atherosclerotic heart disease of native coronary artery without angina pectoris; I10 Essential (primary) hypertension; I71.4 Abdominal aortic aneurysm, without rupture; F41.9 Anxiety disorder, unspecified; H91.92 Unspecified hearing loss, left ear; Z79.01 Long term (current) use of anticoagulants; Z79.899 Other long term (current) drug therapy; Z88.2 Allergy status to sulfonamides; Z87.891 Personal history of nicotine dependence; Z79.82 Long term (current) use of aspirin; Z95.5 Presence of coronary angioplasty implant and graft
CPT/HCPCS: 99285; 96374; 96375 ×2; 36415; 80053; 85025; 85610; 85730; 70360; 71020; G0378 ×2; J2060; J1610

== ENCOUNTER 2017-03-22 06:18 | Emergency (ER) | payer MEDICARE, BC ==
[2017-03-22] MEDS ORDERED: SODIUM CHLORIDE 0.9% 1,000 ML IV STA (06:22)
[2017-03-22 06:24] VITALS: RESP 18; TEMP 97.9
--- NOTE | 2017-03-22 06:30 | ED ---
General Adult HPI - General Chief complaint: Fall Stated complaint: poss stroke,fall Time Seen by Provider: 03/22/17 06:21 Source: EMS, RN notes reviewed, old records reviewed Mode of arrival: EMS Limitations: no limitations - History of Present Illness Initial comments: This is an 86-year-old male to the ER for evaluation falls. Falls with altered mental status. Patient has significant medical history including menstrual both reduced. Patient is unknown if he hit his head, not complaining of headache but mother patient's stated the patient was acting appropriately. They subsequently has no complaints, aside from bilateral knee pain. - Related Data Home Medications Medication Instructions Recorded Confirmed Hydrochlorothiazide [Hydrodiuril] 25 mg PO DAILY 01/17/15 02/27/17 Warfarin [Coumadin] 5 mg PO [id number] 01/17/15 02/27/17 Aspirin EC [Ecotrin Low Dose] 81 mg PO HS 06/03/16 02/27/17 Atorvastatin [Lipitor] 20 mg PO HS 06/03/16 02/27/17 Lisinopril [Zestril] 20 mg PO DAILY 06/03/16 02/27/17 Memantine HCl/Donepezil HCl 1 cap PO DAILY 11/27/16 02/27/17 [Namzaric 28 mg-10 mg Capsule] Metoprolol Succinate [Toprol XL] 25 mg PO DAILY 11/27/16 02/27/17 Propafenone [Rythmol] 225 mg PO TID 11/27/16 02/27/17 Zolpidem Tartrate [Ambien] 5 mg PO HS 11/27/16 02/27/17 Warfarin Sodium 7.5 mg PO YEN 02/27/17 02/27/17 Allergies Allergy/AdvReac Type Severity Reaction Status Date / Time Sulfa (Sulfonamide Allergy Unknown Verified 03/22/17 06:26 Antibiotics) Review of Systems ROS Statement: Those systems with pertinent positive or pertinent negative responses have been documented in the HPI. ROS Other: All systems not noted in ROS Statement are negative. Past Medical History Past Medical History: Atrial Fibrillation, Coronary Artery Disease (CAD), Hypertension Additional Past Medical History / Comment(s): AAA, deaf in left ear, dementia History of Any Multi-Drug Resistant Organisms: None Reported Past Surgical History: Heart Catheterization With Stent, Hernia Repair, Orthopedic Surgery Additional Past Surgical History / Comment(s): bilateral knee replacements Additional Past Anesthesia/Blood Transfusion Reaction / Comment(s): Slow to wake up after anesthesia Date of Last Stent Placement:: Unsure, >5 years Past Psychological History: Anxiety Smoking Status: Former smoker Past Alcohol Use History: None Reported Past Drug Use History: None Reported - Past Family History Father History Unknown: Yes Family Medical History: Myocardial Infarction ([place]) Mother History Unknown: Yes Family Medical History: Cancer General Exam - General Exam Comments Initial Comments: GC GCS 15 trachea midline there was pain breath sounds are equal bilaterally, Limitations: no limitations General appearance: alert, in no apparent distress Head exam: Present: atraumatic, normocephalic, normal inspection Eye exam: Present: normal appearance, PERRL, EOMI. Absent: scleral icterus, conjunctival injection, periorbital swelling ENT exam: Present: normal exam, mucous membranes moist Neck exam: Present: normal inspection. Absent: tenderness, meningismus, lymphadenopathy Respiratory exam: Present: normal lung sounds bilaterally. Absent: respiratory distress, wheezes, rales, rhonchi, stridor Cardiovascular Exam: Present: regular rate, normal rhythm, normal heart sounds. Absent: systolic murmur, diastolic murmur, rubs, gallop, clicks GI/Abdominal exam: Present: soft, normal bowel sounds. Absent: distended, tenderness, guarding, rebound, rigid Extremities exam: Present: normal inspection, full ROM, normal capillary refill. Absent: tenderness, pedal edema, joint swelling, calf tenderness Back exam: Present: normal inspection Neurological exam: Present: alert, oriented X3, CN II-XII intact Psychiatric exam: Present: normal affect, normal mood Skin exam: Present: warm, dry, intact, normal color. Absent: rash Course Vital Signs 03/22/17 03/22/17 06:19 06:50 Temperature 97.9 F Pulse Rate 79 81 Respiratory 18 18 Rate Blood Pressure 178/82 164/74 O2 Sat by Pulse 97 97 Oximetry - Reevaluation(s) Reevaluation #1: 03/22/17 07:08 patient and family spoken with. aware and questions answered. EKG Findings - EKG Comments: EKG Findings:: EKG shows sinus rhythm rate of 70, pO2 40, QRS 112, QTC 436 Medical Decision Making - Medical Decision Making 86 female DEL with altered mental status as well as multiple recent falls. Patient was awake and alert upon arrival to emergency room, the patient does have positive subdural hemorrhage on Coumadin. Patient be reversing his anticoagulation and transferred to, call for surgical neurosurgical evaluation - Lab Data Result diagrams: 03/22/17 06:24 Lab Results 03/22/17 03/22/17 03/22/17 Range/Units 06:24 06:24 06:24 WBC 8.4 (3.8-10.6) k/uL RBC 4.14 L (4.30-5.90) m/uL Hgb 13.4 (13.0-17.5) gm/dL Hct 41.1 (39.0-53.0) % MCV 99.3 (80.0-100.0) fL MCH 32.3 (25.0-35.0) pg MCHC 32.5 (31.0-37.0) g/dL RDW 13.6 (11.5-15.5) % Plt Count 260 (150-450) k/uL PT 20.6 H (9.0-12.0) sec INR 2.3 H (<1.2) APTT 32.0 H (22.0-30.0) sec Total Creatine Kinase 108 (55-170) U/L - Radiology Data Radiology results: report reviewed (CT brain and C-spine positive for acute on chronic subdural hematoma), image reviewed Disposition Clinical Impression: Fall, Subdural hematoma Disposition: OTHER INSTITUTION NOT DEFINED Condition: Serious Referrals: Magno Flores MD [Primary Care Provider] - 1-2 days - Out of Hospital Transfer - Req. Specs Out of Hospital Transfer - Requested Specifics: Other Emergency Center ([facility])
[2017-03-22 06:46] LABS: HCT 41.1 % (39.0-53.0); HGB 13.4 gm/dL (13.0-17.5); MCH 32.3 pg (25.0-35.0); MCHC 32.5 g/dL (31.0-37.0); MCV 99.3 fL (80.0-100.0); Mean Platelet Volume 7.4; Platelet Count 260 k/uL (150-450); RBC 4.14 m/uL (4.30-5.90); RDW 13.6 % (11.5-15.5); WBC 8.4 k/uL (3.8-10.6)
[2017-03-22 06:47] LABS: INR 2.3 (<1.2); Prothrombin Time 20.6 sec (9.0-12.0)
[2017-03-22 06:53] VITALS: BP 164/74; PULSE 81
[2017-03-22] MEDS ORDERED: TRANEXAMIC ACID 1,000 MG in SODIUM CHLORIDE 0.9% 250 ML IV ONE (07:05)
[2017-03-22] MEDS ORDERED: Kcentra PER PHARMACY 1 EACH MISC MISCELLANE STA (07:05)
[2017-03-22] MEDS ORDERED: TRANEXAMIC ACID 1,000 MG in SODIUM CHLORIDE 0.9% 100 ML IV STA (07:05)
--- NOTE | 2017-03-22 07:07 | CT ---
EXAMINATION TYPE: CT brain bryson waller DATE OF EXAM: 03/22/2017 COMPARISON: CT brain June 03, 2016. HISTORY: Fall today, questioning stroke. Neuro deficits. New onset neck pain and dizziness after fall injury. CT DLP: 2894 mGycm. Automated Exposure Control for Dose Reduction was Utilized. TECHNIQUE: CT scan of the head and cervical spine are performed without contrast. FINDINGS: There is ventricular and sulcal prominence consistent with diffuse cerebral atrophy. Is low -attenuation in the periventricular white matter is prominent right greater than left bilateral parie milli-occipital regions. There is new mixed right-sided extra-axial fluid collection with hyperdense an d hypodense component measuring up to 18 mm in thickness. Finding consistent with acute on chronic montelongo bdural hematoma. There is midline shift of 5 mm at level of septum pellucidum on axial image 28. Scle ral calcification both globes is present. Visualized paranasal sinuses are clear. Nasal septum is dev iated to left of midline similar to prior. The calvarium is intact. Cervical spine is visualized in its entirety from C1 through upper thoracic levels and demonstrates s atisfactory alignment without evidence of acute fracture or dislocation. Prevertebral soft tissue ap pears within normal limits. The C1-C2 articulation is within normal limits on the coronal images. Vertebral body heights are maintained. There is moderate to advanced spurring and disc space narrowin g with subchondral cystic change at C4-C5 through C6-C7 levels. Posterior spur disc complexes are eff acing anterior thecal sac at C5-C6 and C6-C7 levels on sagittal and axial images. Review of axial yosvany ges shows multilevel uncovertebral facet degenerative changes bilaterally contributing to bilateral n eural foraminal narrowing most prominent bilateral C3-C4, right C4-C5, and right C5-C6 levels. There is partial visualization of pacemaker wires in the upper thorax. Lungs are grossly clear. Thyroid gla nd is felt within normal limits. There is fairly moderate calcified plaque at both carotid bulbs note d. IMPRESSION: 1. There is no acute fracture or dislocation evident in the cervical spine. Multilevel degenerative c hanges are present as detailed above. 2. There is fairly moderate to large size right-sided acute on chronic subdural hematoma. There is lo heidi mass effect with 5 mm midline shift away noted. Critical results communicated to ordering ER physician via telephone at time of dictation.
[2017-03-22 07:12] LABS: Creatine Kinase MB 1.4 ng/mL (0.0-2.4); Troponin I 0.013 ng/mL (0.000-0.034)
[2017-03-22] MEDS ORDERED: PHYTONADIONE 5 MG in SODIUM CHLORIDE 0.9% 50 ML IVPB STA (07:17)
[2017-03-22] MEDS ORDERED: PHYTONADIONE 10 MG in SODIUM CHLORIDE 0.9% 50 ML IVPB STA (07:22)
[2017-03-22 07:26] LABS: Appearance,Urine Clear (Clear); Bilirubin,Urine Negative (Negative); Blood,Urine Small (Negative); Color,Urine Light Yellow; Glucose,Urine (UA) Negative (Negative); Ketones,Urine Negative (Negative); Leukocyte Esterase,Urine Negative (Negative); Nitrite,Urine Negative (Negative); PH, Urine 6.5 (5.0-8.0); Protein,Urine Negative (Negative); RBC,Urine 2 /hpf (0-5); Specific Gravity,Urine 1.005 (1.001-1.035); Urobilinogen,Urine <2.0 mg/dL (<2.0)
[2017-03-22] MEDS ORDERED: HUMAN PROTHROMBIN COMPLX IV ONE ×2 (07:30→07:38)
[2017-03-22] MEDS ORDERED: HUMAN PROTHROMBIN COMPLX 500 UNIT/16 ML VIAL IV ONE (07:30)
[2017-03-22 07:37] LABS: ALT 27 U/L (21-72); AST 21 U/L (17-59); Albumin 3.8 g/dL (3.5-5.0); Alkaline Phosphatase 87 U/L (38-126); Anion Gap 11 mmol/L; Blood Urea Nitrogen 17 mg/dL (9-20); Calcium 9.4 mg/dL (8.4-10.2); Carbon Dioxide 28 mmol/L (22-30); Chloride 97 mmol/L (98-107); Glucose 104 mg/dL (74-99); Magnesium 1.9 mg/dL (1.6-2.3); Phosphorous 2.6 mg/dL (2.5-4.5); Potassium 3.9 mmol/L (3.5-5.1); Sodium 136 mmol/L (137-145); Total Bilirubin 1.2 mg/dL (0.2-1.3); Total Protein 6.8 g/dL (6.3-8.2)
[2017-03-22 07:40] LABS: Eosinophils # (M) 0.42 k/uL (0-0.7); Lymphocytes # (M) 1.43 k/uL (1.0-4.8); Monocytes # (M) 0.42 k/uL (0-1.0); Neutrophils # (M) 6.13 k/uL (1.3-7.7); Neutrophils % (M) 73 %; Nucleated Red Blood Cells 0 /100 WBC (0-0); Total Cells Counted 100
--- NOTE | 2017-03-22 07:40 | XR ---
EXAMINATION TYPE: XR pelvis AP view DATE OF EXAM: 03/22/2017 CLINICAL HISTORY: pain TECHNIQUE: Single view the pelvis is submitted. FINDINGS: No evidence for fracture, dislocation or bony lesion. Joint spaces are well-preserved. S I joints appear symmetric. IMPRESSION: 1. No acute fracture or dislocation seen. ICD 10 NO FRACTURE, INITIAL EVALUATION
--- NOTE | 2017-03-22 07:41 | XR ---
EXAMINATION TYPE: XR chest 1V DATE OF EXAM: 03/22/2017 HISTORY: Shortness of breath. COMPARISON: 02/27/17 TECHNIQUE: Single view of the chest is submitted. FINDINGS: Demonstrated are scattered senescent parenchymal change. There is no evidence for focal infiltrate. The heart is stable. Hilar and mediastinal structures are within normal limits. Degenerative changes are seen of the dorsal spine. IMPRESSION: 1. Chronic changes without evidence for acute pulmonary disease.
[2017-03-22 07:42] LABS: Anisocytosis (M) Present; Poikilocytosis (M) Present
--- NOTE | 2017-03-22 07:42 | XR ---
EXAMINATION TYPE: XR knee complete bilateral DATE OF EXAM: 03/22/2017 CLINICAL HISTORY: pain TECHNIQUE: Three views of the bilateral knees are obtained. COMPARISON: None. FINDINGS: There is no acute fracture/dislocation. 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 Small suprapatellar joint effusion is noted. The overlying soft tissue appears unremarkable. IMPRESSION: There is no acute fracture or dislocation.ICD 10 NO FRACTURE, INITIAL EVALUATION
[2017-03-26 07:37] LABS: Glucose,Whole Blood 88 mg/dL (75-99)
== END 2017-03-22 08:18 | disposition short-term general hospital (02) ==
LOC: EC 06:18
DX: S06.5X0A Traumatic subdural hemorrhage without loss of consciousness, initial encounter (principal); R40.2412 Glasgow coma scale score 13-15, at arrival to emergency department; I48.91 Unspecified atrial fibrillation; I25.10 Atherosclerotic heart disease of native coronary artery without angina pectoris; I10 Essential (primary) hypertension; Z95.5 Presence of coronary angioplasty implant and graft; Z96.653 Presence of artificial knee joint, bilateral; Z87.891 Personal history of nicotine dependence; Z79.01 Long term (current) use of anticoagulants; Z79.82 Long term (current) use of aspirin; Z79.899 Other long term (current) drug therapy; Z88.2 Allergy status to sulfonamides; W06.XXXA Fall from bed, initial encounter
CPT/HCPCS: 96365 ×4; 96368 ×2; 96361 ×2; 99285 ×2; 36415; 93005; 80053; 82550; 82553; 83735; 84100; 84484; 85025; 85610; 85730; 81001; 87086; 73562; 72170; 71045; 72125; 70450; J3430; C9132; 96360